=== PATIENT | female | born 1965 | race Caucasian/White ===

== ENCOUNTER 2024-06-24 06:00 | Day surgery (SDC) | payer OTHER ==
[~2024-06-24 06:00] MED LIST: Acetaminophen 325 MG Tab PO ONE; Morphine 8 MG, EPINEPHrine 0.3 MG, Cefuroxime 750 MG, Ketorolac 30 MG, Sodium Chloride ... PRN; Pregabalin 25 MG Cap PO ONE; Sodium Chloride 0.9% 10 ML Syringe FLUSH PRN; Sodium Chloride 0.9% 10 ML Syringe FLUSH SCH; oxyCODONE ER 10 MG TAB.ER PO ONE
[2024-06-24] MEDS: Lactated Ringers 1,000 ML IV SCH (06:15)
[2024-06-24] MEDS ORDERED: EPINEPHrine 1 MG/ML SDV ONE (06:30)
[2024-06-24] MEDS ORDERED: fentaNYL 100 MCG/2 ML SDV ONE (06:34)
[2024-06-24] MEDS ORDERED: Propofol 200 MG/20 ML SDV ONE ×2 (06:35→07:42)
[2024-06-24] MEDS ORDERED: ceFAZolin 2 GM Vial ONE (06:36)
[2024-06-24] MEDS ORDERED: Ondansetron 4 MG/2 ML SDV ONE (06:43)
[2024-06-24] MEDS: Acetaminophen 325 MG Tab PO ONE (06:55)
[2024-06-24] MEDS: oxyCODONE ER 10 MG TAB.ER PO ONE (06:55)
[2024-06-24] MEDS: Pregabalin 25 MG Cap PO ONE (06:55)
[2024-06-24] MEDS ORDERED: dexmedeTOMIDine HCl 200 MCG/2 ML SDV ONE (07:05)
[2024-06-24] MEDS ORDERED: Dexamethasone 4 MG/ML 5 ML MDV ONE (07:05)
[2024-06-24] MEDS ORDERED: Ropivacaine 0.5% 5 MG/ML 30 ML SDV ONE (07:05)
[2024-06-24] MEDS ORDERED: Phenylephrine 1% 10 MG/ML SDV ONE (07:10)
[2024-06-24] MEDS ORDERED: Lactated Ringers 1,000 ML ONE (07:41)
[2024-06-24] MEDS: Morphine 8 MG, EPINEPHrine 0.3 MG, Cefuroxime 750 MG, Ketorolac 30 MG, Sodium Chloride ... PRN (07:59)
[2024-06-24] MEDS: VANCOmycin 1 GM SDV ONE (08:05)
[2024-06-24] MEDS: Tranexamic Acid 1,000 MG/10 ML Vial ONE (08:05)
[2024-06-24] MEDS ORDERED: fentaNYL 100 MCG/2 ML SDV IVPUSH PRN (08:50)
[2024-06-24] MEDS ORDERED: Ondansetron 4 MG/2 ML SDV IVPUSH PRN (08:50)
[2024-06-24] MEDS ORDERED: HYDROmorphone 0.5 MG/0.5 ML Syringe IVPUSH PRN (08:50)
[2024-06-24] MEDS: oxyCODONE 5 MG Tab PO ONE (09:45)
== END 2024-06-24 12:15 | disposition home or self-care (01) ==
LOC: JD.SDS 06:00
PROVIDERS: ATTEND Orthopaedic Surgery
DX: M17.12 Unilateral primary osteoarthritis, left knee (principal); I10 Essential (primary) hypertension; E89.0 Postprocedural hypothyroidism; F41.9 Anxiety disorder, unspecified; Z79.899 Other long term (current) drug therapy; Z88.2 Allergy status to sulfonamides
CPT/HCPCS: 0055T; 27447; 64447; 73560; 97110; 97116; 97161; A9270; J0171; J0690; J0697; J1100; J1885; J2272; J2371; J2405; J2704; J2795; J3010; J7120; J3490

== ENCOUNTER 2024-12-02 06:45 | Day surgery (SDC) | payer OTHER ==
[2024-12-02] MEDS: Lactated Ringers 1,000 ML IV SCH (06:40)
[2024-12-02] MEDS ORDERED: Propofol 200 MG/20 ML SDV ONE ×4 (06:46→09:08)
[2024-12-02] MEDS ORDERED: ceFAZolin 2 GM Vial ONE (06:53)
[2024-12-02] MEDS ORDERED: Ropivacaine 0.5% 5 MG/ML 30 ML SDV ONE (06:53)
[2024-12-02] MEDS ORDERED: Dexamethasone 4 MG/ML 5 ML MDV ONE (06:55)
[2024-12-02] MEDS ORDERED: EPINEPHrine 1 MG/ML SDV ONE (06:55)
[2024-12-02] MEDS ORDERED: dexmedeTOMIDine HCl 200 MCG/2 ML SDV ONE (06:55)
[2024-12-02] MEDS ORDERED: Ondansetron 4 MG/2 ML SDV ONE (06:55)
[2024-12-02] MEDS: oxyCODONE ER 10 MG TAB.ER PO ONE (07:04)
[2024-12-02] MEDS: Acetaminophen 325 MG Tab PO ONE (07:04)
[2024-12-02] MEDS: Pregabalin 25 MG Cap PO ONE (07:04)
[2024-12-02 07:26] LABS: INR 0.97; PROTHROMBIN TIME 10.3 SECONDS (9.7-12.0)
[2024-12-02 07:28] LABS: PTT,PARTIAL THROMBOPLSTIN TIME 27.1 SECONDS (21.7-31.4)
[2024-12-02] MEDS ORDERED: ePHEDrine 50 MG/ML SDV ONE (08:12)
[2024-12-02] MEDS ORDERED: Lactated Ringers 1,000 ML ONE (08:36)
[2024-12-02] MEDS ORDERED: Phenylephrine 1% 10 MG/ML SDV ONE (08:44)
[2024-12-02] MEDS: Morphine 8 MG, EPINEPHrine 0.3 MG, Cefuroxime 750 MG, Ketorolac 30 MG, Sodium Chloride ... PRN (09:06)
[2024-12-02] MEDS: VANCOmycin 1 GM SDV ONE (09:12)
[2024-12-02] MEDS: Tranexamic Acid 1,000 MG/10 ML Vial ONE (09:12)
[2024-12-02] MEDS ORDERED: Ondansetron 4 MG/2 ML SDV IVPUSH PRN (09:51)
[2024-12-02] MEDS ORDERED: fentaNYL 100 MCG/2 ML SDV IVPUSH PRN (09:51)
[2024-12-02] MEDS ORDERED: HYDROmorphone 0.5 MG/0.5 ML Syringe IVPUSH PRN (09:51)
[2024-12-02] MEDS ORDERED: oxyCODONE 5 MG Tab PO PRN (10:20)
== END 2024-12-02 11:45 | disposition home or self-care (01) ==
LOC: JD.SDS 06:45
PROVIDERS: ATTEND Orthopaedic Surgery
DX: M17.11 Unilateral primary osteoarthritis, right knee (principal); I10 Essential (primary) hypertension; E66.9 Obesity, unspecified; Z68.33 Body mass index [BMI] 33.0-33.9, adult; Z79.899 Other long term (current) drug therapy; Z88.2 Allergy status to sulfonamides
CPT/HCPCS: 0055T; 27447; 36415; 64447; 73560; 85610; 85730; 97116; 97161; A9270; C1713; C1776; J0171; J0690; J0697; J1100; J1885; J2272; J2371; J2405; J2704; J2795; J7120; 01402; J3370; J3490